=== PATIENT | female | born 1980 | race Hispanic/Latino ===

== ENCOUNTER 2019-09-19 09:07 | Outpatient (CLI) | payer OTHER ==
--- NOTE | 2019-09-29 09:51 | ULT ---
OBSTETRICAL ULTRASOUND: INDICATION: Size and dates. FINDINGS: There is an intrauterine gestation in breech presentation. Cardiac activity is noted at 148 b.p.m. The placenta is posterior and fundal in location. The cervical length was 6.9 cm. The submitted balta ges of the heart and stomach and the breech presentation would indicate that this patient has complet e situs inversus. This was not clear by the burner technician's notes. The majority of the feta l survey is heavily limited due to imaging technique. The visualized cord insertion did appear withi n normal limits. There are portions of the axial views of the spine that appear within normal limits . Sagittal images of the spine are heavily limited. The bladder is not well seen. The kidneys are not well seen. The diaphragm is not well seen. Visualized intracranial contents are poorly demonstr ated. EVARISTO was 17 cm. No maurice hydronephrosis is evident. The biparietal diameter measured 5.4 cm g iving a gestational age of 22 weeks and 2 days. Head circumference was 18.8 cm giving an estimated gestational age of 21 weeks and 0 days. The abdominal circumference was 16.5 cm giving an estimated gestational age of 21 weeks and 3 days. The femoral length was 3.53 cm giving an estimated gestational age of 21 weeks and 0 days. The estimated weight was 557 gm. The average gestational age by ultrasound is 21 weeks 3 days with estimated due date is 01/27/2020. The estimated weight is 44th percentile. IMPRESSION: 1. Heavily limited survey due to positioning and exam technique. Possible situs inversu s. Repeat survey is recommended at [facility]. 2. Single live intrauterine gestation with size and dates as above. POS: [facility]
== END 2019-09-19 09:08 | disposition home or self-care (01) ==
LOC: NAV ULT 09:07
PROVIDERS: ATTEND Family Medicine
DX: O09.892 Supervision of other high risk pregnancies, second trimester (principal); O32.1XX0 Maternal care for breech presentation, not applicable or unspecified; O09.512 Supervision of elderly primigravida, second trimester; Z3A.21 21 weeks gestation of pregnancy
CPT/HCPCS: 76805